=== PATIENT | female | born 1965 | race Caucasian/White ===

== ENCOUNTER → 2019-12-21 | Outpatient (CLI) | payer OTHER ==
--- NOTE | 2019-12-21 15:51 | RAD ---
EXAM: 1. BILATERAL DIGITAL DIAGNOSTIC MAMMOGRAPHY. 2. BILATERAL BREAST ULTRASOUND. HISTORY: Bilateral palpable foci. TECHNIQUE: Bilateral full field digital images were obtained in CC and MLO projections with tomosynthesis. Computer-aided detection was applied. Sonography was performed bilaterally. COMPARISON: Limited images, 02/10/2012. COMPOSITION: D. The breasts are extremely dense, which lowers the sensitivity of mammography. FINDINGS: The patient cannot identify the palpable foci bilaterally. They are laterally on the right and inferolaterally on the left. There is no mammographic correlate for a palpable focus bilaterally. Scattered and coarse calcifications are benign. Obscured and circumscribed small nodules bilaterally appear benign. The parenchymal pattern is stable. Sonography of both lateral breasts was performed. This reveals prominent subareolar ducts bilaterally. No intraductal mass is identified. Subcentimeter cysts bilaterally are mildly complicated but appear benign. The largest is on the left at the 1:00 position 7 cm from the nipple and measures 6 mm. Images of the axillae reveal no abnormal appearing lymph nodes bilaterally. There is no suspicious sonographic finding. BI-RADS CATEGORY 2: Benign. RECOMMENDATION: 1. Ongoing clinical follow-up of palpable foci. 2. Routine screening mammography in one year. If mammography demonstrates dense breast tissue (heterogenously dense or extremely dense, category C or D), which could hide abnormalities, and if other risk factors for breast cancer have been identified, supplemental screening tests that may be suggested by the ordering physician may be of benefit. Dense breast tissue, in and of itself, is a relatively common condition. Therefore, this information is not provided to cause undue concern, but rather to raise awareness and to promote discussion with the referring physician regarding the presence of other risk factors, in addition to dense breast tissue. The results of this mammography examination is provided to the patient and referring physician. The patient should contact their referring physician if any questions or concerns exist regarding this report. PQRS compliance statement - Patient information was entered into a reminder system with a target due date for the next mammogram. "Our facility is accredited by the [employer] Mammography Program." Electronically signed by: Carlito Baldwin MD (12/21/2019 3:47 PM) [id number]
== END | disposition home or self-care (01) ==
LOC: MAMMO 14:08
PROVIDERS: ATTEND Nurse Practitioner Family
DX: N63.12 Unspecified lump in the right breast, upper inner quadrant (principal); N63.21 Unspecified lump in the left breast, upper outer quadrant
CPT/HCPCS: 76641; 77066

== ENCOUNTER → 2020-05-15 | Outpatient (CLI) | payer OTHER ==
--- NOTE | 2020-05-15 17:19 | RAD ---
EXAM: Right shoulder, 3 views. HISTORY: Pain. COMPARISON: None. FINDINGS: 3 views of the right shoulder obtained. There is no fracture, dislocation or subluxation. IMPRESSION: No acute osseous finding. Electronically signed by: Eli Laboy MD (05/15/2020 5:17 PM) [id number]
== END ==
LOC: DXRAD 15:01
PROVIDERS: ATTEND Nurse Practitioner Family
DX: M25.511 Pain in right shoulder (principal)
CPT/HCPCS: 73030

== ENCOUNTER → 2020-11-14 | Outpatient (CLI) | payer OTHER ==
--- NOTE | 2020-11-14 17:33 | RAD ---
CT THORAX WO History: Shortness of breath. Cough. Technique: Noncontrast CT of the chest was performed. Coronal and sagittal reconstructions were perfo rmed. Exposure: One or more of the following individualized dose reduction techniques were utilized for thi s examination: 1. Automated exposure control 2. Adjustment of the mA and/or kV according to patient size 3. Use of iterative reconstruction technique. Comparison: CT abdomen pelvis April 30, 2019 Findings: Chest: No pathologic lymphadenopathy. Mild atheromatous plaque within the aorta. Coronary artery calc ifications. Advanced pulmonary emphysema. No consolidation or pleural effusion. No pneumothorax. Multiple nodules bilaterally. [employer] samples included: 5 mm left upper lobe pulmonary nodule (series 2 image 42). 5 mm left upper lobe pulmonary nodule (image 62). 4 mm left lower lobe pulmonary nodule (image 61). A millimeter and linear nodular opacity left lower lobe (image 47). Right upper l obe 4 mm pulmonary nodules (image 49). 6 mm right middle lobe pulmonary nodule along the fissure (michelle ge 65). 5 mm right lower lobe pulmonary nodule (image 80). Several nodules within the right lower lob e are similar compared to prior although not well evaluated due to opacities previously. Upper abdomen: Partially imaged right renal hydronephrosis, similar compared to prior. 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 Bones: No pathologic osseous lesions. Impression: 1. Numerous pulmonary nodules bilaterally. Recommend 3-6 month follow-up and comparison with prior i maging studies would be of benefit. If concern for metastatic disease, recommend immediate further ev aluation. 2. Severe pulmonary emphysema. 3. Right renal hydronephrosis partially imaged. Ultrasound can further evaluate if indicated. Electronically signed by: Vicente Paez DO (11/14/2020 5:31 PM) [id number]
== END ==
LOC: CT 12:45
PROVIDERS: ATTEND Nurse Practitioner Family
DX: N13.30 Unspecified hydronephrosis (principal); R91.1 Solitary pulmonary nodule; J43.9 Emphysema, unspecified
CPT/HCPCS: 71250